=== PATIENT | female | born 1990 | race Caucasian/White ===

== ENCOUNTER 2016-05-12 01:12 | Emergency (ER) | payer OTHER ==
[~2016-05-12] VITALS: Ht 157.5 cm; Wt 54.5 kg
[2016-05-12] MEDS ORDERED: LORAZEPAM 2 MG INJ IM ONE (01:30)
[2016-05-12 01:43] VITALS: Ht 157.5 cm; Wt 54.5 kg
[2016-05-12] MEDS ORDERED: HALOPERIDOL 5 MG INJ IM ONE (03:30)
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
[2016-05-13] MEDS ORDERED: HALOPERIDOL 5 MG INJ IM STA (09:40)
[2016-05-13] MEDS ORDERED: LORAZEPAM 2 MG INJ IM ONE (10:00)
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
[2016-05-13 20:00] VITALS: BP 99/68; PULSE 62; RESP 18; TEMP 98
== END 2016-05-13 22:34 ==
LOC: E/R 01:12
DX: F29 Unspecified psychosis not due to a substance or known physiological condition (principal); F20.2 Catatonic schizophrenia; R40.2142 Coma scale, eyes open, spontaneous, at arrival to emergency department; R40.2252 Coma scale, best verbal response, oriented, at arrival to emergency department; R40.2362 Coma scale, best motor response, obeys commands, at arrival to emergency department
CPT/HCPCS: 36415; 84703; 96372; J1630; J2060; Z7502